=== PATIENT | female | born 1960 | race Two or more races ===

== ENCOUNTER 2019-01-17 15:20 | Emergency (ER) | payer SELFPAY ==
[~2019-01-17] VITALS: Ht 157.5 cm; Wt 78.9 kg
[2019-01-17 18:38] VITALS: BP 133/66
[2019-01-17] MEDS ORDERED: SILVER SULFADIAZINE 1 % TOPICAL CREAM 50GM TOP ONE (20:20)
== END 2019-01-17 20:52 | disposition home or self-care (01) ==
LOC: ER 15:33
DX: T24.012A Burn of unspecified degree of left thigh, initial encounter (principal); T21.02XA Burn of unspecified degree of abdominal wall, initial encounter; X12.XXXA Contact with other hot fluids, initial encounter; Y93.89 Activity, other specified; Y99.8 Other external cause status; Y92.89 Other specified places as the place of occurrence of the external cause